=== PATIENT | female | born 1950 | race Caucasian/White ===

== ENCOUNTER 2017-05-24 17:18 | Emergency (ER) | payer BC ==
[2017-05-24 17:30] VITALS: BP 154/59
--- NOTE | 2017-05-24 18:10 | UC ---
Knee Pain HPI - HPI Summary HPI Summary: Patient presents with worsening left knee pain over the past 2-3 weeks. She has known osteoarthritis in her knee and for the last several years has had intermittent pain that usually resolves with OTC analgesics and rest. Over the past few weeks the pain has been getting worse and more frequent. Earlier today she was getting into her husbands truck and her left knee gave out. She is now unable to weight-bear due to the discomfort. She follows with an orthopedist at [facility]. She states she has had 2 open right knee surgeries. - History of Current Complaint Chief Complaint: UCLowerExtremity Stated Complaint: KNEE INJURY Time Seen by Provider: 05/24/17 17:43 Hx Obtained From: Patient Onset/Duration: Gradual Onset, Lasting Weeks, Still Present Severity Initially: Mild Severity Currently: Moderate Pain Intensity: 9 Pain Scale Used: 0-10 Numeric Character: Aching Aggravating Factor(s): Movement, Weight Bearing Alleviating Factor(s): Rest Associated Signs And Symptoms: Negative: Swelling, Redness, Bruising, Numbness, Tingling - Allergies/Home Medications Allergies/Adverse Reactions: Allergies Allergy/AdvReac Type Severity Reaction Status Date / Time Sulfa (Sulfonamide Allergy Hives Verified 05/24/17 17:30 Antibiotics) Home Medications: Home Medications SUMAtriptan [Imitrex] 20 mg NA 05/24/17 [History] PMH/Surg Hx/FS Hx/Imm Hx Endocrine History: Hypothyroidism - Surgical History Surgical History: Yes Surgery Procedure, Year, and Place: rt KNEE REPLACEMENT - Family History Known Family History: Positive: Hypertension - Social History Alcohol Use: Occasionally Substance Use Type: None Smoking Status (MU): Never Smoked Tobacco Review of Systems Constitutional: Negative Skin: Negative Respiratory: Negative Cardiovascular: Negative Gastrointestinal: Negative Musculoskeletal: Arthralgia, Decreased ROM All Other Systems Reviewed And Are Negative: Yes Physical Exam Triage Information Reviewed: Yes Appearance: Well-Appearing, No Pain Distress, Well-Nourished Vital Signs: Initial Vital Signs Temp 97.6 F 05/24/17 17:25 Pulse 75 05/24/17 17:25 Resp 18 05/24/17 17:25 BP 154/59 05/24/17 17:25 Pulse Ox 98 05/24/17 17:25 Vital Signs Reviewed: Yes Eyes: Positive: Conjunctiva Clear ENT: Positive: Hearing grossly normal Neck: Positive: Supple Respiratory: Positive: No respiratory distress, No accessory muscle use Cardiovascular: Positive: Pulses Normal Abdomen Description: Positive: Soft Musculoskeletal: Positive: No Edema, ROM Limited @ - LEFT KNEE, Other: - LEFT KNEE: MILD MEDIAL AND LATERAL JOINT LINE TENDERNESS. MCL AND LCL INTACT TO STRESS TESTING. NEG LACHMANS. NEG DRAWERS SIGNS. EQUIVOCAL MCMURRAYS - PT IN TOO MUCH DISCOMFORT. NEG PATELLAR APPREHENSION TEST. NO TENDERNESS OVER PATELLAR LIGAMENT OR QUADRICEPS TENDON. DECREASED ROM (FLEXION AND EXTENSION). Neurological: Positive: Alert Psychological: Positive: Age Appropriate Behavior Skin: Negative: rashes Diagnostics - Radiology LEFT KNEE XRAY Xray Interpretation: Positive (See Comments) - Degenerative changes of the left knee Radiology Interpretation Completed By: Radiologist Knee Pain Course/Dx - Differential Dx/Diagnosis Provider Diagnoses: LEFT KNEE DJD/SUSPECTED INTERNAL INJURY Discharge - Sign-Out/Discharge Documenting (check all that apply): Discharge - Discharge Plan Condition: Stable Disposition: HOME Patient Education Materials: Osteoarthritis (ED), Knee Pain (ED) Referrals: No Primary Care Phys,NOPCP [Primary Care Provider] - Additional Instructions: X-ray today showed degenerative changes of your left knee. Wear the knee immobilizer and use the crutches as needed for mobility. Call your orthopedist at [facility] tomorrow for a follow-up appointment to be seen as soon as you can get in. SUSPECTED INTERNAL KNEE INJURY: The examiner of your injured knee suspects an internal injury to the cartilage or internal ligaments. This must be further investigated by an food service specialist. The knee should be protected, ice packed, and elevated while awaiting your follow-up exam by the orthopedist. If there is severe swelling, severe pain, or any new symptoms while awaiting your exam, you should call the orthopedist. (If he/she is unavailable, call us or return for re-examination.) - Billing Disposition and Condition Condition: STABLE Disposition: HOME
--- NOTE | 2017-05-24 18:37 | RAD ---
INDICATION: Left knee pain COMPARISON: None TECHNIQUE: 4 view radiograph of the left knee. FINDINGS: The visualized bones are well-corticated and properly aligned. Mild degenerative changes include osteophyte formation adjacent to the medial and lateral compartments. There is narrowing at the patellofemoral joint on the lateral view with sclerotic change of the articulating services. This is also seen on the sunrise view there is sclerotic change along the articulating surface of the patella. There is no radiographic evidence of joint effusion. There is no acute fracture, dislocation or other focal bony abnormality. IMPRESSION: Degenerative changes of the left knee as described above without radiographically apparent acute fracture or dislocation. If the patient's symptoms persist, follow-up imaging is recommended.
== END 2017-05-24 19:12 | disposition home or self-care (01) ==
LOC: UCEAST 17:18
DX: M25.562 Pain in left knee (principal); M17.12 Unilateral primary osteoarthritis, left knee; E03.9 Hypothyroidism, unspecified; Z96.651 Presence of right artificial knee joint; Z88.2 Allergy status to sulfonamides
CPT/HCPCS: 99213; G0463